=== PATIENT | male | born 1955 | race American Indian/Alaskan Native ===

== ENCOUNTER 2020-03-19 22:59 | Emergency (ER) | payer MEDICARE, OTHER ==
[~2020-03-19] VITALS: Ht 165.1 cm; Wt 72.7 kg
[~2020-03-19 22:59] MED LIST: CLIN-97 PO; DIAZ5TAB4 PO; LORA10TA7 PO; METH-603 PO; SENN1TAB61 PO; SPIR100T5 PO; SPIR25TA5 PO; VENL150C58 PO; VENL75CA61 PO
--- NOTE | 2020-03-19 23:20 | NUR ---
PT GORDON [phone]
[2020-03-19 23:32] LABS: MEAN CORPUSCULAR HEMOGLOBIN 33.4 PG (27.0-31.0); MEAN CORPUSCULAR HGB CONC 33.9 g/dL (33.0-36.5)
[2020-03-19 23:34] LABS: BASOPHILS # (AUTO) 0.1 X10'3 (0-0.2); EOSINOPHILS # (AUTO) 0.6 X10'3 (0-0.9); EOSINOPHILS % (AUTO) 11.3 % (0-6); HEMATOCRIT 36.1 % (42.0-52.0); HEMOGLOBIN 12.2 g/dl (14.0-17.9); LYMPHOCYTES # (AUTO) 1.1 X10'3 (1.1-4.8); LYMPHOCYTES % (AUTO) 21.6 % (21-51); MEAN CORPUSCULAR VOLUME 98.4 FL (78-98); MEAN PLATELET VOLUME 6.4 FL (7.4-10.4); MONOCYTES # (AUTO) 0.3 X10'3 (0-0.9); MONOCYTES % (AUTO) 6.6 % (2-12); NEUTROPHILS # (AUTO) 3.1 X10'3 (1.8-7.7); NEUTROPHILS % (AUTO) 59.5 % (42-75); PLATELET COUNT 204 X10'3 (140-440); RED BLOOD COUNT 3.67 X10'6 (4.70-6.10); RED CELL DISTRIBUTION WIDTH 17.4 % (11.5-14.5); WHITE BLOOD COUNT 5.2 X10'3 (4.5-11.0)
--- NOTE | 2020-03-19 23:45 | NUR ---
WHILE CHANGING PT INTO HOSPITAL GOWN AND OBTAINING URINE SAMPLE, PT BEGAN HAVING FACIAL AND RIGHT SIDED ARM TWITCHING. EDNC JIGNESH AWARE AND CAME AND SAW PT TWITCHING. NO NEW ORDERS. WILL CONTINUE TO [facility].
[2020-03-19 23:50] LABS: TOTAL CELLS COUNTED 100
[2020-03-19 23:51] LABS: ANISOCYTOSIS 1+; PLATELET ESTIMATE NORMAL
[2020-03-19 23:56] LABS: ALANINE AMINOTRANSFERASE 7 U/L (12-78); ALBUMIN 3.3 G/DL (3.4-5.0); ALKALINE PHOSPHATASE 155 IU/L (46-116); ANION GAP 3 (8-16); ASPARTATE AMINO TRANSFERASE 19 U/L (10-37); BILIRUBIN,TOTAL 0.3 MG/DL (0.1-1.0); BLOOD UREA NITROGEN 8 MG/DL (7-18); BUN/CREATININE RATIO 16.7 (5.4-32.0); CALCIUM 8.1 MG/DL (8.5-10.1); CHLORIDE 98 MMOL/L (99-107); CREATININE 0.48 MG/DL (0.60-1.10); GLUCOSE 76 MG/DL (70-104); POTASSIUM 3.7 MMOL/L (3.5-5.1); SODIUM 133 MMOL/L (135-145); TOTAL CARBON DIOXIDE 32.3 MMOL/L (24-32); TOTAL PROTEIN 6.6 G/DL (6.4-8.2); eGFR > 90 ML/MIN
[2020-03-19 23:56] LABS: CLARITY,URINE CLEAR (Clear); COLOR,URINE YELLOW (Yellow); GLUCOSE, URINE NEGATIVE (Neg); KETONES,URINE NEGATIVE (Neg); LEUKOCYTE ESTERASE ,URINE NEGATIVE (Neg); NITRITES, URINE NEGATIVE (Neg); OCCULT BLOOD,URINE NEGATIVE (Neg); PROTEIN,URINE NEGATIVE (Neg); UA COLLECTION TYPE STRAIGHT CATH
[2020-03-20 00:04] LABS: CARBAMAZEPINE (TEGRETOL) < 0.5 UG/ML (4.0-12.0)
[2020-03-20] MEDS ORDERED: CLEM2.68 PO (00:12)
[2020-03-20] MEDS ORDERED: BACL20TA11 PO (00:12)
[2020-03-20] MEDS ORDERED: OXCA300T16 PO (00:12)
[2020-03-20] MEDS ORDERED: KEP500T PO (00:12)
--- NOTE | 2020-03-20 05:10 | NUR ---
Attempted to contact patient's Celeste glez patient being discharged and got her voicemail. Message left asking for a call back
[2020-03-20 05:19] VITALS: BP 149/92
--- NOTE | 2020-03-20 05:22 | NUR ---
[facility] called for transport. Will call back with an ETA.
== END 2020-03-20 06:13 | disposition home or self-care (01) ==
LOC: ER 22:59
DX: R56.9 Unspecified convulsions (principal); J45.909 Unspecified asthma, uncomplicated; G89.29 Other chronic pain; F12.90 Cannabis use, unspecified, uncomplicated; Z86.14 Personal history of Methicillin resistant Staphylococcus aureus infection; Z98.890 Other specified postprocedural states; Z88.8 Allergy status to other drugs, medicaments and biological substances; Z79.899 Other long term (current) drug therapy
CPT/HCPCS: 36415; 70450; 71045; 80053; 80156; 81003; 82948; 85025; 93005; 99285